=== PATIENT | female | born 1985 | race Caucasian/White ===

== ENCOUNTER 2019-09-21 10:21 | Emergency (ER) | payer OTHER, SELFPAY ==
[2019-09-21 10:37] VITALS: BP 120/76; PULSE 66; RESP 20; TEMP 37.1; O2SAT 100
--- NOTE | 2019-09-21 10:45 | ED.URI ---
HPI - URI/Sore Throat General Chief Complaint: Upper Respiratory Infection Stated Complaint: sore throat/lethargic Time Seen by Provider: 09/21/19 10:45 Source: patient Mode of arrival: ambulatory Limitations: no limitations History of Present Illness HPI Narrative: Kaleb Young is a 34 yo female with a PMH of depression, who has symptoms of upper respiratory illness for the past week, with worsening sore throat the last 2 days. Denies smoking or drinking Family history mother has COPD Related Data Home Medications Medication Instructions Recorded Confirmed fluoxetine 40 mg DAILY 09/21/19 09/21/19 methylphenidate HCl [Concerta] 27 mg PO DAILY 09/21/19 09/21/19 topiramate 50 mg DAILY 09/21/19 09/21/19 Allergies Allergy/AdvReac Type Severity Reaction Status Date / Time No Known Allergies Allergy Verified 09/21/19 10:32 Review of Systems Review of Systems: Narrative: CONSTITUTIONAL: Denies fever, chills, sweats. EYES: Denies visual changes, redness, discharge. ENT: Denies rhinorrhea, congestion, has sore throat, no otalgia. CARDIOVASCULAR: Denies chest pain, palpitations, edema. RESPIRATORY: Denies dyspnea, wheezing, cough GASTROINTESTINAL: Denies abdominal pain, nausea, vomiting, diarrhea. GENITOURINARY: Denies dysuria, hematuria, abnormal discharge SKIN: Denies rash or itching. NEUROLOGIC: Denies numbness, or focal weakness. PSYCHIATRIC: Denies anxiety or depression. PMFSH Family History Family History Other COPD (chronic obstructive pulmonary disease) Social History Social History (Updated 09/21/19 @ 10:53 by Laura Yoon CNP) Smoking status: Never smoker Alcohol intake: never Gender identity (if verbalized by the patient): Female Comments At time of signature, I agree with nursing past medical, surgical, social and family history. There is no relevant family history pertinent to the presenting complaint. Exam Narrative: Exam Narrative: GENERAL: This is a well-nourished, well-developed patient, in mild distress. HEAD: normocephalic, atraumatic. EYES: . Sclera clear/white. Vision is grossly intact. EARS: External ears normal, Hearing grossly intact. NOSE: External nose normal with no obvious nasal discharge, nares without redness, no rhinorrhea. THROAT: Mucous membranes moist, posterior pharynx erythema no clear exudate NECK: Neck supple, non-tender without lymphadenopathy, CARDIOVASCULAR: Regular rate and rhythm without murmurs, gallops, or rubs. RESPIRATORY: Clear to auscultation. Breath sounds equal bilaterally. No wheezes, rales, or rhonchi. GASTROINTESTINAL: Abdomen soft, non-tender, nondistended. SKIN: warm, intact with no suspicious lesions or rash, good texture and turgor. NEURO: awake, alert, and oriented to person, place and time. There were no obvious focal neurologic abnormalities. Steady gait EXTREMITIES: Normal range of motion. No edema. BACK: Nontender without deformity or crepitance. No flank tenderness. Course Course Emergency Course: Strep positive flu negative Started on penicillin, codeine cough syrup Vital Signs Vital signs: Vital Signs Temperature 98.8 F 09/21/19 10:37 Pulse Rate 66 09/21/19 10:37 Respiratory Rate 09/21/19 10:37 Blood Pressure 120/76 09/21/19 10:37 Pulse Oximetry 100 09/21/19 10:37 Temperature 98.8 F 09/21/19 10:37 Pulse Rate 66 09/21/19 10:37 Respiratory Rate 20 09/21/19 10:37 Blood Pressure 120/76 09/21/19 10:37 Pulse Oximetry 100 09/21/19 10:37 MDM - URI/Sore Throat Differential Diagnosis Differential diagnosis: Likely upper respiratory infection, bronchitis and pharyngitis Discharge Plan Discharge Clinical Impression: Pharyngitis Qualifiers: Pharyngitis/tonsillitis etiology: streptococcus Qualified Code(s): J02.0 - Streptococcal pharyngitis Patient Disposition: Home, Self-Care Condition: Stable Instructions:
== END 2019-09-21 11:02 | disposition home or self-care (01) ==
PROVIDERS: Emergency Provider Nurse Practitioner
DX: J02.0 Streptococcal pharyngitis (principal); F41.9 Anxiety disorder, unspecified; F32.9 Major depressive disorder, single episode, unspecified; F90.9 Attention-deficit hyperactivity disorder, unspecified type
CPT/HCPCS: 87804; 87880; 99213; G0463

== ENCOUNTER → 2021-04-02 08:59 | Outpatient (CLI) | payer OTHER, SELFPAY ==
[2021-04-02 19:18] LABS: SARS-CoV-2 RNA PCR Negative
== END ==
PROVIDERS: PCP Obstetrics & Gynecology; Visit Provider Obstetrics & Gynecology
DX: Z20.822 Contact with and (suspected) exposure to COVID-19 (principal)
CPT/HCPCS: C9803; U0003; U0005

== ENCOUNTER 2021-06-09 09:08 | Outpatient (CLI) | payer OTHER, SELFPAY ==
[2021-06-09 09:47] LABS: Hematocrit 32.9 % (37.0-47.0); Hemoglobin 11.1 g/dL (12.0-15.0); Mean Corpuscular HGB Conc 33.7 g/dl (32-36); Mean Corpuscular Hemoglobin 30.9 pg (26-34); Mean Corpuscular Volume 91.6 fl (80-100); Mean Platelet Volume 11.2 fl (7.4-10.4); Platelet Count Result 146 k/mm3 (150-375); Red Blood Count 3.59 M/mm3 (4.2-5.4); Red Cell Distribution Width 13.7 % (11.5-14.5); White Blood Count 8.9 K/mm3 (4.5-10.0)
[2021-06-10 07:12] LABS: Rapid Plasma Reagin Non-Reactive (NonReactive)
== END 2021-06-09 09:09 | disposition home or self-care (01) ==
PROVIDERS: Visit Provider Obstetrics & Gynecology
DX: Z34.93 Encounter for supervision of normal pregnancy, unspecified, third trimester (principal); Z3A.00 Weeks of gestation of pregnancy not specified
CPT/HCPCS: 36415; 85027; 86592; 86850; 86900; 86901

== ENCOUNTER 2021-06-10 07:00 | Inpatient (IN) | payer OTHER, SELFPAY ==
[2021-06-10] VITALS (53 sets, daily range): BP systolic 93–153; BP diastolic 60–97; PULSE 69–87; RESP 12–20; TEMP 36.4–37.1; O2SAT 98–100; BMI 35.0
--- OUTSIDE RECORDS SUMMARY | 2021-06-10 07:05 | XMS_ITS | Encounter Summary ---
:1985 Author Reason for Visit OB visit and pre-op Assessment and Plan 1. History of section 2. Routine care Discussion Note: None recorded.Patient educational handouts: No information available. Plan of Care Reminders Provider Appointments Surg Post 06/17/2021 Lisa T herese Op 9:00AM MD [facility] Lab None ? ? recorded. Referral None ? ? recorded. Procedures None ? ? recorded. Surgeries None ? ? recorded. Imaging None ? ? recorded. Medications Name Start Date ? ? fluoxetine 20 mg capsule ? TAKE ONE CAPSULE BY MOUTH DAILY ? Zyrtec ? Medications Administered None recorded. Vitals Height Weight BMI Blood Pressure 5 ft 4.75 in 220 lbs 36.9 kg/m2 113/74 mm[Hg] Results Lab Results None recorded. Allergies Code Code System Name Reaction Severity Onset NKDA ? ? ? Problems Name Status Onset Date Source ? Active 12/09/2020 ? Depressive Disorder Active ? ? History of Section Active ? ? Procedu
--- OUTSIDE RECORDS SUMMARY | 2021-06-10 07:05 | XMS_ITS | Encounter Summary ---
:1985 Author Reason for Visit OB visit OB [id number] EDC 06/17/2021 LMP 09/10/2020 Assessment and Plan Assessment Note Patient is _37__weeks . Dis cussed plan. 1. Routine care Discussion Note: None recorded.Patient educational handouts: No information available. Plan of Care Reminders Provider Appointments Surg Post 06/17/2021 Lisa Tsang herese Op 9:00AM MD [facility] None [...] ft 4.75 in 220 lbs 36.9 kg/m2 123/76 mm[Hg] Results Lab Results None recorded. Allergies Code Code System Name Reaction Severity Onset NKDA ? ? ? Problems Name Status Onset Date Source ? Active 12/09/2020 ? Depressive Disorder Active
--- OUTSIDE RECORDS SUMMARY | 2021-06-10 07:05 | XMS_ITS | Encounter Summary ---
:1985 Author Reason for Visit OB visit 28wks Glucose today Assessment and Plan 1. Routine care Discussion Note: None recorded.Patient [...] BMI Blood Pressure 5 ft 4.75 in 204 lbs 34.2 kg/m2 114/73 mm[Hg] Results Lab Results None recorded. Allergies Code Code System Name Reaction Severity Onset NKDA ? ? ? Problems Name Status Onset Date Source ? Active 12/09/2020 ? Depressive Disorder Active ? ? History of Section Active ? ? Procedures Date Name Performed by
--- OUTSIDE RECORDS SUMMARY | 2021-06-10 07:05 | XMS_ITS | Encounter Summary ---
:1985 Author Reason for Visit OB visit Assessment and Plan 1. History of section ? section (SURG) 2. Candidal vulvovaginitis ? Diflucan 150 mg tablet Discussion Note: None recorded.Patient educational handouts: No information available. Plan of Care Reminders Provider Appointments Surg Post Op Am y Mary 06/17/2021 MD [facility] 9:00AM Lab None ? ? recorded. Referral None ? ? recorded. Procedures None ? ? recorded. Surgeries Josh Surgery Section (SURG) 06/10/2021 [facility] Imaging None ? ? recorded. Medications Name Start Date ? ? fluoxetine 20 mg capsule ? TAKE ONE CAPSULE BY MOUTH DAILY ? Zyrtec ? Medications Administered None recorded. Vitals Height Weight BMI Blood Pressure 5 ft 4.75 in 208 lbs 34.9 kg/m2 107/64 mm[Hg] Results Lab Results None recorded. Allergies Code Code System Name Reaction Severity Onset NKDA ? ? ? Problems Name Status Onset Date Source ?
--- OUTSIDE RECORDS SUMMARY | 2021-06-10 07:05 | XMS_ITS | Encounter Summary ---
:1985 Author Reason for Visit OB visit Assessment and Plan 1. Routine care 2. History of section Discussion Note: None recorded.Patient educational handouts: No [...] BMI Blood Pressure 5 ft 4.75 in 215 lbs 36.1 kg/m2 105/71 mm[Hg] Results Lab Results None recorded. Allergies Code Code System Name Reaction Severity Onset NKDA ? ? ? Problems Name Status Onset Date Source ? Active 12/09/2020 ? Depressive Disorder Active ? ? History of Section Active ? ? Procedures Date Name
--- OUTSIDE RECORDS SUMMARY | 2021-06-10 07:05 | XMS_ITS | Encounter Summary ---
:1985 Author Reason for Visit None recorded. Assessment and Plan 1. Reduced movement ? non-stress test Discussion Note: None recorded.Patient educational handouts: No information available. Plan of Care Reminders Provider Appointments Surg Post 06/17/2021 Lisa Mcbride, Real 9:00AM Lab None ? ? recorded. Referral None ? ? recorded. Procedures None ? ? recorded. Surgeries None ? ? recorded. Imaging 05/15/2021 [place] Non-stress Test Medications Name Start Date ? ? fluoxetine 20 mg capsule ? TAKE ONE CAPSULE BY MOUTH DAILY ? Zyrtec ? Medications Administered None recorded. Vitals None recorded. Results Lab Results None recorded. Allergies Code Code System Name Reaction Severity Onset NKDA ? ? ? Problems Name Status Onset Date Source ? Active 12/09/2020 ? Depressive Disorder Active ? ? History of Section Active ? ? Procedures Date Name Performed by ?
--- OUTSIDE RECORDS SUMMARY | 2021-06-10 07:05 | XMS_ITS | Encounter Summary ---
:1985 Author Reason for Visit OB visit Assessment and Plan 1. Routine care 2. Depressive disorder 3. History of section Discussion Note: None recorded.Patient [...] BMI Blood Pressure 5 ft 4.75 in 216 lbs 36.2 kg/m2 115/74 mm[Hg] Results Lab Results None recorded. Allergies Code Code System Name Reaction Severity Onset NKDA ? ? ? Problems Name Status Onset Date Source ? Active 12/09/2020 ? Depressive Disorder Active ? ? History of Section Active ? ?
--- OUTSIDE RECORDS SUMMARY | 2021-06-10 07:05 | XMS_ITS | Encounter Summary ---
:1985 Author Reason for Visit OB visit OB [id number] EDC 06/17/2021 LMP 09/10/2020 Assessment and Plan Assessment Note Patient is _32__weeks . Dis cussed plan. 1. Routine care [...] BMI Blood Pressure 5 ft 4.75 in 211 lbs 35.4 kg/m2 115/73 mm[Hg] Results Lab Results None recorded. Allergies Code Code System Name Reaction Severity Onset NKDA ? ? ? Problems Name Status Onset Date Source ? Active 12/09/2020 ? Depressive Disorder Active
--- OUTSIDE RECORDS SUMMARY | 2021-06-10 07:05 | XMS_ITS ---
:1985 Author Care Team Providers Name Role Phone [facility] Lisa Pleitezse Primary Care Provider Unavailable Allergies Code Code System Name Reaction Severity Status Onset NKDA ? Medications Name Status Start Date Stop Date ? ? Analpram-HC 2.5 %-1 % lotion Completed ? Anucort-HC 25 mg suppository Completed ? UNWRAP AND INSERT 1 SUPPOSITORY RECTALLY TWICE DAILY FOR 14 DAY S Concerta 27 mg tablet,extended release Completed ? 10/14/2020 take 1 tablet by oral route every day in the morning escitalopram 10 mg tablet Completed ? 2019 fluconazole 150 mg tablet Completed ? 2020 TAKE 1 TABLET BY MOUTH 1 TIME fluoxetine 20 mg capsule Active ? Not nathan ilable fluoxetine 40 mg capsule Completed ? 021 TAKE 1 CAPSULE BY MOUTH EVERY DAY DIRECTED folic acid 1 mg tablet Completed ? hydrocortisone-pramoxine 2.5 %-1 % rectal cream Completed ? 04/22/2021 APPLY TO ANUS THREE TIMES DAILY NEEDED metronidazole 0.75 % vaginal gel Completed ? 02/06/2021 INSERT 1 APPLICATORFUL VAGINALLY EVERY DAY FOR 5 DAYS nitrofurantoin monohydrate/macrocrystals 100 mg capsule Complete d ? 11/10/2020 TAKE 1 CAPSULE BY MOUTH EVERY 12 HOURS penicillin V potassium 500 mg tablet Completed ? 02/08/2020 Active ? Not available Topamax 50 mg tablet Completed ? 10/14/2020 take 1 tablet by oral route 2 times every day topiramate 25 mg tablet Completed ? 10/15/19 21 TAKE 2 TABLETS BY MOUTH EVERY DAY DIRECTED
--- NOTE | 2021-06-10 07:13 | PM.IMHP ---
H&P: HPI History of Present Illness Date/Time: 06/10/21 07:13 Chief Complaint: repeat CS Narrative: Kaleb is a 35yo at 39 weeks for repeat CS. complicated only by depression on prozac. Review of Systems Review of Systems: All systems reviewed & are unremarkable except as noted in HPI and below PMFSH Family History Family History Other COPD (chronic obstructive pulmonary disease) Social History Social History (Updated 09/21/19 @ 10:53 by Laura Yoon CNP) Smoking status: Never smoker Alcohol intake: never Substance use: never Gender identity (if verbalized by the patient): Female Spiritual care concerns: No Meds Home Medications and Allergies Home Medications Medication Instructions Recorded Confirmed Type PNV cmb#95-ferrous fumarate-FA 1 tablet PO DAILY 05/16/21 05/16/21 History [] cetirizine [Zyrtec] 10 mg PO DAILY 05/16/21 05/16/21 History ferrous sulfate [Iron (ferrous 325 mg PO DAILY 05/16/21 05/16/21 History sulfate)] fluoxetine 20 mg PO DAILY 05/16/21 05/16/21 History Allergies Allergy/AdvReac Type Severity Reaction Status Date / Time No Known Allergies Allergy Verified 09/21/19 10:32 Exam Const: General: no acute distress Resp: Effort & Inspection: normal respiratory effort Auscultation: clear to auscultation bilaterally Cardio: Rate: regular rate Rhythm: regular rhythm GI: GI Palp: Yes Soft to palpation Extrem: General: normal to inspection Assessment and Plan Additional Plan Plan Repeat CS Discussed RBA, pt consented, all questions answered. will proceed.
--- NOTE | 2021-06-10 07:15 | WPDHPUPDATE1 ---
History and Physical Update Update Date/Time: 06/10/21 07:15 History and Physical has been reviewed, including an updated exam of the patient. There are NO changes in the patient's condition. Risks, benefits, and alternatives have been discussed and questions answered. Patient agrees to proceed with procedure.
[2021-06-10] MEDS: LACTATED RINGERS 1,000 ML 125 ML IV CONT ×2 (08:08→09:32)
--- NOTE | 2021-06-10 08:21 | LDADM ---
This patient, Kaleb Young, was admitted to Labor/Delivery/Recovery 119 on 06/10/21 at 07:00. Plans for labor, pain management and were discussed with patient. Patient/family oriented to hospital policies and general routines including ID bracelet, bed and alarms, visiting hours, pain management, procedures, bathroom and other care routines, personal items, smoking policy, room service/diet and guest tray routines, infant security routines, and visiting hours. Patient/Family are encouraged to report perceived risks to care and to ask questions if they do not understand what they are told or what they should do. See OBIX for further documentation.
--- NOTE | 2021-06-10 09:24 | WPDANESEPPF ---
Anes - Initial Pre Proc Eval Procedure: Operation Date: 06/10/21 09:00 Proposed Procedures p Repeat Section - Lisa Mcbride MD Date/Time: 06/10/21 09:24 Surgeon: Lisa Mcbride MD Pre Op Diagnosis: c/s Patient Data Age: 35 Gender: F Height: 1.69 m Weight: 100 kg Last Vital Signs Temp 36.8 C 06/10/21 08:15 Pulse 76 06/10/21 09:00 BP 117/67 06/10/21 09:00 Allergies Allergy/AdvReac Type Severity Reaction Status Date / Time No Known Allergies Allergy Verified 09/21/19 10:32 Home Medications Medication Instructions Recorded Confirmed Type PNV cmb#95-ferrous fumarate-FA 1 tablet PO DAILY 05/16/21 05/16/21 History [] cetirizine [Zyrtec] 10 mg PO DAILY 05/16/21 05/16/21 History ferrous sulfate [Iron (ferrous 325 mg PO DAILY 05/16/21 05/16/21 History sulfate)] fluoxetine 20 mg PO DAILY 05/16/21 05/16/21 History Patient hx anesthesia problems: none Family hx anesthesia problems: none Results Review: All pre-operative results and documents have been reviewed as part of the pre-operative evaluation. [facility] Past Medical History Medical History (Updated 06/10/21 @ 09:25 by Juan Antonoi Esparza MD) Depression Family History Family History Other COPD (chronic obstructive pulmonary disease) Social History Social History (Updated 09/21/19 @ 10:53 by Laura Yoon CNP) Smoking status: Never smoker Alcohol intake: never Substance use: never Gender identity (if verbalized by the patient): Female Spiritual care concerns: No Anes - Eval Final PreProcedure Day of Procedure 06/10/21 09:24 Patient weight: overweight Heart: regular rate and rhythm Lungs: clear to auscultation and normal air movement Airway: Mallampati scale class II Neurological: alert and oriented Last oral intake: >/= 8 hours ASA classification: II Emergent: no Anesthetic plan: proceed Anesthesia type and monitoring: regional spinal Results Review: All pre-operative results and documents have been reviewed as part of the pre-operative evaluation. Informed Consent: The patient's anesthetic plan and its attendant risks and benefits were discussed with the patient/family/POA. Questions were solicited and answers provided to the satisfaction of the patient/family/POA.
--- NOTE | 2021-06-10 10:51 | PM.OBPRVD ---
OB - Delivery Note Procedure Delivery date: 06/10/21 Procedure: Procedures Operation Date: 06/10/21 09:00 <No data on this case meets the specified criteria> Repeat Low Transverse Section Route of delivery: Specimen: No (placenta) Quantitative Blood Loss (ml): 1,025 Anesthesia type: Spinal Disposition: floor Complications: none Narrative: The patient was taken to the OR and received spinal anesthesia. She was placed in dorsal supine position with left lateral tilt. SCDs and pratt were placed. She was prepped and draped in the normal sterile fashion. A Pfannensteil skin incision was made and carried through to the underlying layer of fascia. The fascia was incised in the midline and then extended laterally using Rodriguez scissors. The muscles were in the midline and the peritoneum was entered bluntly. The peritoneal incision was extended inferiorly and superiorly with care to avoid the bladder. The bladder blade was then inserted, the vesicouterine peritoneum was grasped, incised with Metzenbaum scissors, and a bladder flap created. The bladder blade was reinserted. A low transverse uterine incision was made with a scalpel and extended bluntly. AROM was performed and fluid was noted to be clear. The head was delivered, followed by the remainder of the baby. The baby's oropharynx was suctioned. After 30 seconds, the cord was clamped and cut and the infant was handed off. Cord blood was obtained and the placenta was then removed manually. The uterus was exteriorized. A moist lap sponge was used to curette the endometrium. The uterine incision was then closed with one layer of 0-Vicryl in a running, locking fashion. Good hemostasis was noted. The posterior cul de sac was irrigated with normal saline and cleared of all clot and debris. The uterus was returned to the abdomen. Both lateral gutters were then irrigated. The rectus muscles were inspected and found to be hemostatic. The fascia was reapproximated using 0-Vicryl in running fashion. The subcutaneous tissue was irrigated with normal saline and made hemostatic with Bovie electrocautery. The subcutaneous tissue was reapproximated with a layer of running 2-0 plain gut. The skin was then closed with 4-0 Vicryl in a subcuticular fashion. Steri strips and a bandage were applied. The uterus was evacuated. The patient tolerated the procedure very well. All counts were correct. She was taken to the recovery room in good condition. [place] Baby Date of : 06/10/21 Time of : 10:22 Weeks of gestation at delivery: 39 Infant gender: Male Weight (pounds): 9 Weight (ounces): 14 presentation: vertex Placenta delivery description: Manual Removal cord vessel description: 3 Vessels, Nuchal Cord and Delayed Cord Clamping score one minute: 8 score five minutes: 9
[2021-06-10] MEDS: KETOROLAC 30 MG/ML VIAL (*BKC) IV PUSH (11:22)
[2021-06-10] MEDS: OXYTOCIN 30 UNITS/NS 500 ML 30 UNITS/500 ML BAG 125 UNITS IV CONT (12:24)
[2021-06-10] MEDS: fentaNYL CITRATE INJ (*CRX) 100 MCG/2 ML VIAL 25 MCG IV PUSH (12:55)
--- NOTE | 2021-06-10 13:25 | PC.NURSE ---
Patient transferred to post room #278 per stretcher from labor and delivery. Support person present. Oriented to unit, room, information board, rooming in, admission packet and security measures. Patient verbalizes understanding.
[2021-06-10] MEDS: HYDROcodone/acetaminophen (*CRX) 10-325 MG TABLET 1 TAB PO ×2 (14:10→20:02)
--- NOTE | 2021-06-10 14:35 | PC.NURSE ---
Consult with pt., mother has to breast in cradle position. Mother states she breastfed first child for a few weeks then switched to bottle due to anxiety and medications. Mother wishes to breastfeed this child for several months. Infant is able to freely thrust tongue past gum ridge and flange both lips. Skin is intact on both nipples, no redness and bruising noted. Reviewed feeding cues, frequencies, duration of feedings, feeding elimination flow sheet, and signs of adequate intake. Demonstrated stimulation techniques to wake for feeding. Assisted with to breast. Reviewed positioning/alignment in cross cradle, holding breast in ?U? hold and guided asymmetrical latch on. Reviewed rational for each. Infant able to latch correctly within a few attempts. Infant nursed eagerly with steady draws and frequent swallowing noted, some pausing noted. Reviewed signs of a correct latch, effective nursing and suck swallow ratio. Suggested mother stimulate while feeding to increase stimulation for milk supply, for increased intake and to assist with maintaining deep latch. very fussy and pulling back. Suggested mother give slight resistance not allowing infant to pull back to shallow latch. would slip to shallow latch causing tenderness. Demonstrated how to adjust latch more deeply while feeding if needed. Mother reports she can feel the difference in latch with no tenderness. Nipple care reviewed of lanolin after feedings, warm compresses as needed. Instructed mother to call out for RN assistance if she is unable to latch infant for feeding or she has discomfort with nursing. Instructed feeding should be initiated three hours from start of last feeding or if feeding cues are noted before. Mother voiced understanding of information shared.
[2021-06-10] MEDS: DEXTROSE 5%/0.45% SOD CHL 1,000 ML 125 ML IV CONT (17:04)
[2021-06-10] MEDS: IBUPROFEN 600 MG TABLET PO ×2 (17:05→23:52)
[2021-06-10] MEDS: HYDROcodone/acetaminophen (*CRX) 5-325 MG TABLET 1 TAB PO ×2 (17:05→23:53)
[2021-06-10] MEDS: SIMETHICONE 80 MG TAB.CHEW PO (20:02)
[2021-06-11] VITALS: BP 102/60; PULSE 76; RESP 18; TEMP 36.1
[2021-06-11 04:00] VITALS: BP 98/65; PULSE 89; RESP 16; TEMP 36.6
[2021-06-11] MEDS: HYDROcodone/acetaminophen (*CRX) 5-325 MG TABLET 1 TAB PO ×3 (04:49→10:56)
[2021-06-11] MEDS: SIMETHICONE 80 MG TAB.CHEW PO ×2 (04:49→19:17)
[2021-06-11] MEDS: IBUPROFEN 600 MG TABLET PO ×3 (04:50→19:16)
[2021-06-11 05:12] LABS: Basophils Absolute Auto 0.1 K/mm3 (0.0-0.1); Basophils Percent Auto 0.6 % (0.2-1.2); Eosinophils Absolute Auto 0.1 K/mm3 (0-0.3); Hematocrit 30.5 % (37.0-47.0); Hemoglobin 10.2 g/dL (12.0-15.0); Immature Granulocyte Absolute 0.07 K/mm3 (0.00-0.031); Immature Granulocyte Percent A 0.6 % (0-0.5); Lymphocytes Absolute Auto 1.55 K/mm3 (0.9-3.2); Lymphocytes Percent Auto 13.9 % (18.3-44.2); Mean Corpuscular HGB Conc 33.4 g/dl (32-36); Mean Corpuscular Hemoglobin 30.6 pg (26-34); Mean Corpuscular Volume 91.6 fl (80-100); Mean Platelet Volume 10.3 fl (7.4-10.4); Monocytes Percent Auto 9.2 % (2.6-8.5); Neutrophils Absolute Auto 8.4 K/mm3 (1.3-6.7); Neutrophils Percent Auto 74.7 % (45.5-73.1); Platelet Count Result 117 k/mm3 (150-375); Red Blood Count 3.33 M/mm3 (4.2-5.4); Red Cell Distribution Width 13.8 % (11.5-14.5); White Blood Count 11.2 K/mm3 (4.5-10.0)
[2021-06-11 07:35] VITALS: BP 105/64; PULSE 77; RESP 18; TEMP 36.8; O2SAT 100
--- NOTE | 2021-06-11 07:55 | P.PNOB_ITS ---
OB - PN: Subj Subjective Date/time seen: 06/11/21 07:55 Patient comments: no complaints, pain well controlled, tolerating diet and flatus present [place] baby status: doing well OB - PN: Obj Data Labs CBC & Chem 7: 06/11/21 04:51 Labs: Laboratory Results - last 24 hr 06/11/21 04:51 WBC 11.2 H RBC 3.33 L Hgb 10.2 L Hct 30.5 L MCV 91.6 MCH 30.6 MCHC 33.4 RDW 13.8 Plt Count 117 L MPV 10.3 Immature Gran % (Auto) 0.6 H Neut % (Auto) 74.7 H Lymph % (Auto) 13.9 L [place] % (Auto) 9.2 H Eos % (Auto) 1.0 Baso % (Auto) 0.6 Lymph # (Auto) 1.55 [place] # (Auto) 1.0 H Eos # (Auto) 0.1 Baso # (Auto) 0.1 Abs Immat Gran (auto) 0.07 H Absolute Neuts (auto) 8.4 H Absolute Nucleated RBC 0.0 Nucleated RBC % 0.0 OB - PN A/P Plan day: 1 Plan: routine care Time Spent With Patient Time: Total time spent is greater than 50% in coordination of care (as documented) at patient's floor/unit and/or counseling patient: Time with patient: less than 15 minutes Review of Systems Review of Systems: All systems reviewed & are unremarkable except as noted in HPI and below Exam Narrative: Fundus firm. Vaginal flow controlled. Incision dry and intact. N egative homans. No redness, warmth, or pain of lower ext. Const: General: comfortable Chest: Breast/axilla inspection: normal inspection of the breasts Resp: Effort & Inspection: normal respiratory effort Auscultation: clear to auscultation bilaterally Cardio: Rate: regular rate GI: GI Palp: Yes Soft to palpation Psych: Appearance: grossly normal Affect: normal affect Attitude: cooperative Thought content: Yes Normal thought content present Judgement: Good judgement present (Psych)
--- NOTE | 2021-06-11 08:17 | WPDANLDNPN2 ---
Anes-Prog Note L&D-Neuraxial Date/Time: 06/11/21 08:17 Neuraxial medications: intrathecal PF morphine Opiod-related complaints: none Patient feedback: Patient satisfied with post-operative pain management.
--- NOTE | 2021-06-11 08:17 | WPDANLDPN2 ---
Anes-Prog Note L&D Date/Time: 06/11/21 08:17 Comfortable throughout: section Neuraxial method: spinal Epidural/Spinal procedure site: clean & non-tender Neuro status: Neuro function grossly intact. Cardiovascular status: normal Respiratory status: normal Airway patency: baseline Mental status: baseline Post-Op hydration status: normal Vital Signs: Last Vital Signs Temp 36.6 C 06/11/21 04:00 Pulse 89 06/11/21 04:00 Resp 16 06/11/21 04:00 BP 98/65 L 06/11/21 04:00 Pulse Ox 98 06/10/21 16:50 Pain score (VAS): 0 I/O: Intake & Output 06/10/21 06/11/21 06/11/21 23:59 07:59 15:59 Intake Total 1040 1250 Output Total 900 2400 Balance 140 -1150 Post-procedural complaints: none Patient feedback: Patient satisfied with anesthetic care.
[2021-06-11] MEDS: FLUoxetine HCL 20 MG CAPSULE PO (08:48)
[2021-06-11] MEDS: MULTIVIT/MIN/PREN/FOL AC/IRON TABLET 1 TAB PO (08:48)
[2021-06-11] MEDS: DOCUSATE SODIUM 100 MG CAPSULE PO ×2 (08:48→15:46)
[2021-06-11] MEDS: LORATADINE 10 MG TABLET (09:45)
--- NOTE | 2021-06-11 12:25 | PC.NURSE ---
Mother called out for assist with feeding, reporting she began supplementing after feedings during the night. Mother states she has some difficulties getting to latch. . is able to freely thrust tongue past gum ridge and flange both lips. Skin is intact on both nipples, no redness and bruising noted. Reviewed feeding cues, frequencies, duration of feedings, feeding elimination flow sheet, and signs of adequate intake. Demonstrated stimulation techniques to wake infant for feeding. Assisted with infant to breast. Reviewed positioning/alignment in cross cradle, holding breast in ?U? hold and guided asymmetrical latch on. Reviewed rational for each. Mother prefers to use cradle. Infant able to latch correctly within a few attempts. nursed eagerly with steady draws and occasional swallowing noted, some pausing noted. Reviewed signs of a correct latch, effective nursing and suck swallow ratio. Suggested mother stimulate while feeding to increase stimulation for milk supply, for increased intake and to assist with maintaining deep latch. Infant would slip to shallow latch causing tenderness. Demonstrated how to adjust latch more deeply while feeding if needed. Mother reports she can feel the difference in latch with less tenderness. Assisted mother with pillows to support infant using cradle. Nipple care reviewed of lanolin after feedings, warm compresses as needed. Instructed mother to call out for RN assistance if she is unable to latch for feeding or she has discomfort with nursing. Instructed feeding should be initiated three hours from start of last feeding or if feeding cues are noted before. Mother voiced understanding of information shared.
[2021-06-11] MEDS: HYDROcodone/acetaminophen (*CRX) 10-325 MG TABLET 1 TAB PO ×2 (15:47→19:16)
[2021-06-11 19:15] VITALS: BP 133/81; PULSE 84; RESP 16; TEMP 37.3; O2SAT 100
[2021-06-12] MEDS: HYDROcodone/acetaminophen (*CRX) 10-325 MG TABLET 1 TAB PO (00:16)
[2021-06-12] MEDS: IBUPROFEN 600 MG TABLET PO (04:30)
[2021-06-12] MEDS: HYDROcodone/acetaminophen (*CRX) 5-325 MG TABLET 1 TAB PO ×2 (04:30→09:13)
[2021-06-12 07:45] VITALS: BP 105/70; PULSE 74; RESP 16; TEMP 36.9; O2SAT 100
--- NOTE | 2021-06-12 08:11 | PM.OBPNVD ---
OB - PN: Subj Subjective Date/time seen: 06/12/21 08:11 Patient comments: no complaints and pain well controlled baby status: doing well [place] feeding status: breast and bottle feeding Narrative: would like DC home today. OB - PN: Obj Data Labs CBC & Chem 7: 06/11/21 04:51 OB - PN A/P Assessment and Plan (1) , delivered: Code(s): O80 - Encounter for full-term uncomplicated delivery Status: Acute (2) delivery delivered: Code(s): O82 - Encounter for delivery without indication Status: Acute Plan day: 2 Plan: routine care and discharge home Time Spent With Patient Time: Total time spent is greater than 50% in coordination of care (as documented) at patient's floor/unit and/or counseling patient: Exam Narrative: NAD abdomen soft, appropriately tender, incision CDI Extremities nontender with 1+ edema
--- NOTE | 2021-06-12 08:19 | PM.OBDSVD ---
DS: Admitting Diagnosis Discharge Date 06/12/21 Admitting Diagnosis IUP 39 weeks, prior CS DS: Discharge Diagnosis Discharge Diagnosis (1) delivery delivered: Code(s): O82 - Encounter for delivery without indication Status: Acute OB - DS: Summary Hospital Course Hospital Course: Kaleb had an uncomplicated delivery and an uncomplicated course. OB Procedures : Ultrasound OB Procedures Intrapartum: OB Procedures: : None Peripartum Data Procedures: Procedures Operation Date: 06/10/21 09:00 Actual Procedure Side Surgeon p Repeat Section Bilateral Lisa Mcbride MD complications: none Status at Discharge Functional status at discharge: independent ambulation Time Spent with Patient Time attestation: Total time spent providing and/or coordinating discharge services: Exam Narrative: NAD abdomen soft, appropriately tender, incision CDI Discharge Plan Discharge Attending physician on discharge: Lisa Mcbride Discharging Clinician: Lisa Mcbride Anticipated Discharge Date/Time: 06/12/21 14:00 Patient Disposition: Home, Self-Care Activity: may shower and pelvic rest Diet: regular Patient Instructions: Antibiotic Form Stand Alone Forms: General Discharge Information Follow-up/Referrals: Lisa Mcbride MD [Physician] - 1 Week Discharge Medications: New hydrocodone-acetaminophen 5-325 mg Tablet 1 tablet PO Q4-5H PRN (Reason: Moderate Pain (4-6)) Qty: 30 RF: 0 docusate sodium 100 mg Capsule 100 mg PO BID Qty: 60 RF: 0 ibuprofen 600 mg Tablet 600 mg PO Q6H PRN (Reason: Cramping) Qty: 60 RF: 0 Continued ferrous sulfate [Iron (ferrous sulfate)] 325 mg (65 mg iron) Tablet 325 mg PO DAILY RF: 0 fluoxetine 20 mg Tablet 20 mg PO DAILY RF: 0 PNV [id number] fumarate-FA [] 28 mg iron- 800 mcg Tablet 1 tablet PO DAILY RF: 0 Discontinued cetirizine [Zyrtec] 10 mg Tablet 10 mg PO DAILY RF: 0 Date of admission: 06/10/21 07:00 Primary Care Provider: PHYSICIAN,RETAIL ASSISTANT STORE MANAGER Admitting Provider: Lisa Mcbride Attending physician on admission: Lisa Mcbride Condition: Stable
--- NOTE | 2021-06-12 08:30 | PC.NURSE ---
Consult with pt., observed mother is able to independently latch with appropriate positioning/alignment. eagerly latches on first attempt with long rhythmical draws and frequent swallowing noted. She denies any nipple discomfort, is feeding as required and waking to feed if needed. Infant has had at least 8 effective feedings in the past 24 hours, and is currently meeting outcomes for weight, output, jaundice and feeding frequencies. Mother chooses to supplement after breastfeedings due to anxiety and PPD with last child, due to anxiety of not knowing infant was getting enough with . Reviewed adequate signs of breastmilk intake. Mother states she may discontinue supplement once she feels infant is satisfied and she knows her milk is in. Mother states she feels confident to continue effective /supplementation at home. Reviewed transition to breast milk, signs of adequate intake, and engorgement/relief. Instructed to call ICP if intake/output less than required. Reviewed regular medications mother is taking. Information provided per [place]. Reviewed community resources on the [email or web address] website and in the Mom/Baby guide. Information on outpatient services provided. Mother has no further questions at this time. Instructed feeding should be initiated three hours from start of last feeding or if feeding cues are noted before until seen by ICP. Mother voiced understanding of information shared.
[2021-06-12] MEDS: MULTIVIT/MIN/PREN/FOL AC/IRON TABLET 1 TAB PO (09:13)
[2021-06-12] MEDS: FLUoxetine HCL 20 MG CAPSULE PO (09:13)
[2021-06-12] MEDS: DOCUSATE SODIUM 100 MG CAPSULE PO (09:13)
--- NOTE | 2021-06-12 11:26 | PC.NURSE ---
Patient viewed the discharge video Mother & Baby Care, The First Two Weeks . Patient was given the opportunity and encouraged to ask questions. Patient verbalized understanding of information shared and has been given the mother/baby guide for home reference.
[2021-06-15 11:22] VITALS: BP 110/71; PULSE 85; RESP 18; TEMP 36.9; O2SAT 100
== END 2021-06-12 12:27 | disposition home or self-care (01) | DRG 788 ==
LOC: ANHLDR 07:03 → ANHOB2 13:27
PROVIDERS: Admitting Provider Obstetrics & Gynecology; Visit Provider Obstetrics & Gynecology
PROC: 10D00Z1 Extraction of Products of Conception, Low, Open Approach (ICD-10-PCS; CPT 59514; principal; 2021-06-10 09:00)
DX: O34.219 Maternal care for unspecified type scar from previous cesarean delivery (principal); O99.344 Other mental disorders complicating childbirth; F32.A Depression, unspecified; O69.81X0 Labor and delivery complicated by cord around neck, without compression, not applicable or unspecified; Z3A.39 39 weeks gestation of pregnancy; Z37.0 Single live birth
CPT/HCPCS: 36415; 85025; 85027; 86592; 86850; 86900; 86901; A9270; J0131; J1885; J2210; J2274; J2405; J2590; J3010; J7120

== ENCOUNTER 2022-06-28 17:58 | Emergency (ER) | payer OTHER, SELFPAY ==
--- NOTE | 2022-06-28 18:40 | ED.URI ---
HPI - URI/Sore Throat General Chief Complaint: Upper Respiratory Infection Stated Complaint: flu like symtoms Time Seen by Provider: 06/28/22 18:40 Source: patient Mode of arrival: ambulatory Limitations: no limitations History of Present Illness HPI Narrative: Mr. Young is a 36-year-old female patient presenting to the clinic today with complaints of flu-like symptoms. She reports she is having body aches, fatigue,chills, cough, sore throat, and feeling feverish. She reports that her son is also having the same symptoms however he is somewhat improved but she is feeling the same. Symptoms started on Tuesday night. MD elicited complaint: sore throat and nasal congestion Related Data Home Medications Medication Instructions Recorded Confirmed fluoxetine 20 mg tablet 40 mg PO DAILY 05/16/21 06/28/22 Allergies Allergy/AdvReac Type Severity Reaction Status Date / Time No Known Allergies Allergy Verified 06/28/22 18:40 Review of Systems Review of Systems: Pertinent positives per HPI. Patient denies any, rash, headache, visual changes, dizziness, shortness of breath, chest pain, palpitations, nausea, vomiting, diarrhea, constipation, abdominal pain, or any urinary issues. [facility] Past Medical History Medical History Depression Family History Family History Other COPD (chronic obstructive pulmonary disease) Social History Social History Smoking status: Never smoker Alcohol intake: never Substance use: never Gender identity (if verbalized by the patient): Female Spiritual care concerns: No Comments At the time of my signature, I reviewed and agree with the nursing past medical, surgical, social, and family history. There is no relevant family history pertinent to the patient complaint. Exam Narrative: General: Well-developed, well nourished, in no apparent distress Head: Normocephalic, atraumatic Eyes: Pupils equally round and reactive to light bilaterally, EOM intact, sclera and conjunctive clear, no discharge, lids normal Ears: TMs intact and dull, ear canals clear, no drainage, grossly hearing normal. Nose: Nares patent, clear nasal discharge, no inflammation, no sinus tenderness. Mouth: Oral pharynx without lesions or masses, good dentition, MMM. oropharynx red Neck: Supple, trachea midline, no enlargement of anterior or posterior cervical nodes, no thyroid masses or goiter palpable. Cardio: Regular rate and rhythm, s1 and s2 normal, no murmur appreciated. Resp: Clear to auscultation bilaterally, no rhonchi, rales, wheezing or rubs Course Course Emergency Course: Portions of this record may have been created with voice recognition software. Level of Care: Express Care Visit Vital Signs Vital signs: Vital signs reviewed MDM - URI/Sore Throat MDM Narrative Medical decision making narrative: at the time of the patient is resting comfortably on the exam table. COVID influenza testing was completed COVID testing was negative influenza was positive for influenza A. Prescription for Tamiflu as sent to the pharmacy. Supportive measures were discussed with the patient she voiced understanding of discharge instructions and agreed to treatment plan. Differential Diagnosis Differential diagnosis: Likely sinusitis, viral infection, influenza and pharyngitis Discharge Plan Discharge Clinical Impression: Influenza A Patient Disposition: Home, Self-Care Condition: Stable Instructions: Antibiotic Form, Influenza (ED) Additional Instructions: COVID testing is negative in the clinic today however influenza testing was positive for influenza A Take prescription medications only as prescribed- Tamiflu Increase fluids and stay well hydrated Tylenol/motrin for pain/fever Flonase and OTC ant
[2022-06-28 18:44] VITALS: BP 114/68; PULSE 69; RESP 18; TEMP 36.4; O2SAT 100
== END 2022-06-28 19:00 | disposition home or self-care (01) ==
PROVIDERS: Emergency Provider Nurse Practitioner Family; PCP Obstetrics & Gynecology
DX: J10.1 Influenza due to other identified influenza virus with other respiratory manifestations (principal); Z20.822 Contact with and (suspected) exposure to COVID-19
CPT/HCPCS: 87426; 87804; 99213; C9803; G0463

== ENCOUNTER 2023-09-10 09:31 | Emergency (ER) | payer OTHER, SELFPAY | END 2023-09-10 10:21 | disposition left against medical advice (07) | PROVIDERS: Emergency Provider Nurse Practitioner | DX: Z53.21 Procedure and treatment not carried out due to patient leaving prior to being seen by health care provider (principal) | CPT/HCPCS: 99199 ==